=== PATIENT | female | born 1950 | race Hispanic/Latino ===

== ENCOUNTER 2018-02-19 15:00 | Outpatient (RCR) | payer MEDICARE | END 2018-02-27 | LOC: PT 15:00 | PROVIDERS: ATTEND Specialist | DX: M25.562 Pain in left knee (principal); M25.662 Stiffness of left knee, not elsewhere classified; R26.2 Difficulty in walking, not elsewhere classified; M62.81 Muscle weakness (generalized) | CPT/HCPCS: 97110 ×3; 97161; G8978; G8979 ==

== ENCOUNTER → 2021-04-11 | Outpatient (CLI) | payer MEDICARE | LOC: RAD 14:48 | PROVIDERS: ATTEND Family Medicine | DX: J18.9 Pneumonia, unspecified organism (principal) | CPT/HCPCS: 71046 ==

== ENCOUNTER → 2021-04-26 | Outpatient (CLI) | payer OTHER | LOC: DX 11:27 | PROVIDERS: ATTEND Family Medicine | DX: K21.9 Gastro-esophageal reflux disease without esophagitis (principal) | CPT/HCPCS: 74246 ==